=== PATIENT | male | born 1975 | race Caucasian/White ===

== ENCOUNTER 2019-08-27 10:14 | Emergency (ER) | payer OTHER, SELFPAY ==
[2019-08-27 10:15] VITALS: BP 152/87; PULSE 59; RESP 18; TEMP 36.3; O2SAT 98; BMI 22.1
[2019-08-27 10:33] VITALS: BP 116/77; PULSE 58; RESP 13; O2SAT 98
--- NOTE | 2019-08-27 10:39 | XRR_ITS ---
PROCEDURE INFORMATION: Exam: XR Chest, 1 View Exam date and time: 08/27/2019 10:42 AM Age: 44 years old Clinical indication: Other: Weakness and numbness TECHNIQUE: Imaging protocol: XR of the chest Views: 1 view. COMPARISON: No relevant prior studies available. FINDINGS: Lungs: Moderately hyperaerated lungs consistent with deep inspiratory effort vs significant reactive airway disease vs moderate COPD . Pleural space: Unremarkable. No pleural effusion. No pneumothorax. Heart/Mediastinum: Unremarkable. No cardiomegaly. Bones/joints: Mild levoscoliosis. Mild thoracic spondylosis. XR/XR chest 1V portable [id number] IMPRESSION: Moderately hyperaerated lungs consistent with deep inspiratory effort vs significant reactive airway disease vs moderate COPD .
--- NOTE | 2019-08-27 10:39 | CTR_ITS ---
PROCEDURE INFORMATION: Exam: CT Angiography Head With Contrast Exam date and time: 08/27/2019 10:49 AM Age: 44 years old Clinical indication: Numbness; Additional info: Dizziness / numbness / tingling TECHNIQUE: Imaging protocol: Computed tomography angiography of the head with intravenous contrast. 3D rendering: MIP and/or 3D reconstructed images were created by the technologist. Radiation optimization: All CT scans at this facility use at least one of these dose optimization techniques: automated exposure control; mA and/or kV adjustment per patient size (includes targeted exams where dose is matched to clinical indication); or iterative reconstruction. Contrast material: OMNI 350; Contrast volume: 95 ml; Contrast route: INTRAVENOUS (IV); COMPARISON: CT head wo con* [id number] 08/27/2019 10:57 AM RADIATION DOSE METRICS: Total DLP (mGy-cm): 2369.65 FINDINGS: Anterior cerebral arteries: No occlusion or significant stenosis. No aneurysm. Right internal carotid artery: Intracranial segment is patent with no significant stenosis or occlusion. No aneurysm. Right middle cerebral artery: No occlusion or significant stenosis. No aneurysm. Right posterior cerebral artery: No occlusion or significant stenosis. No aneurysm. Right vertebral artery: No occlusion or significant stenosis. No aneurysm. Left internal carotid artery: Calcified plaque in the left cavernous ICA without significant stenosis. Left middle cerebral artery: No occlusion or significant stenosis. No aneurysm. Left posterior cerebral artery: Possible small left posterior communicating artery. Left vertebral artery: No occlusion or significant stenosis. No aneurysm. Basilar artery: No occlusion or significant stenosis. No aneurysm. Other vasculature: Patent anterior communicating artery. IMPRESSION: No large vessel occlusion. PROCEDURE INFORMATION: Exam: CT Angiography Neck With Contrast Exam date and time: 08/27/2019 10:49 AM Age: 44 years old Clinical indication: Numbness; Additional info: Dizziness / numbness / tingling TECHNIQUE: Imaging protocol: Computed tomography angiography of the neck with intravenous contrast. 3D rendering: MIP and/or 3D reconstructed images were created by the technologist. Radiation optimization: All CT scans at this facility use at least one of these dose optimization techniques: automated exposure control; mA and/or kV adjustment per patient size (includes targeted exams where dose is matched to clinical indication); or iterative reconstruction. Contrast material: OMNI 350; Contrast volume: 95 ml; Contrast route: INTRAVENOUS (IV); COMPARISON: CT head wo con* [id number] 08/27/2019 10:57 AM RADIATION DOSE METRICS: Total DLP (mGy-cm): 2369.65 FINDINGS: Right common carotid artery: No stenosis. No dissection or occlusion. Right internal carotid artery: No ICA stenosis by NASCET/SRU criteria. Right external carotid artery: No occlusion or stenosis of the origin. Right vertebral artery: Codominant vertebral arteries. Left common carotid artery: No stenosis. No dissection or occlusion. Left internal carotid artery: No stenosis of the extracranial segment. No dissection or occlusion. Left external carotid artery: No occlusion or stenosis of the origin. Left vertebral artery: No stenosis. No dissection or occlusion. Other vasculature: Developmental defect in the posterior arch of C1 which is a normal variant. Dental: Examination is limited secondary to metallic artifact from dental fillings and/or dental hardware. Bones/joints: No acute fracture. Soft tissues: Normal. No significant soft tissue swelling. CT/CT angio headneck* [id number] IMPRESSION: 1. Codominant vertebral arteries. 2. No ICA stenosis by NASCET/SRU criteria. REFERENCES: NASCET CRITERIA. The degree of internal carotid artery stenosis is based on NASCET criteria. Normal is no stenosis. Mild is less than 50% stenosis. Moderate is 50-69% stenosis. Severe is 70% to 99% stenosis. Total occlusion is no detectable patent lumen. Radiation Dose CTDIVOL = (mGy): DLP = 2369.65~2369.65 (mGy-cm)
--- NOTE | 2019-08-27 10:39 | CTR_ITS ---
PROCEDURE INFORMATION: Exam: CT Head Without Contrast Exam date and time: 08/27/2019 10:49 AM Age: 44 years old Clinical indication: Dizziness TECHNIQUE: Imaging protocol: Computed tomography of the head without contrast. Radiation optimization: All CT scans at this facility use at least one of these dose optimization techniques: automated exposure control; mA and/or kV adjustment per patient size (includes targeted exams where dose is matched to clinical indication); or iterative reconstruction. COMPARISON: No relevant prior studies available. RADIATION DOSE METRICS: Total DLP (mGy-cm): 855.25 FINDINGS: Brain: Normal. No hemorrhage. Unremarkable white matter. No mass effect. Ventricles: Normal. No ventriculomegaly. Bones/joints: Unremarkable. No acute fracture. Sinuses: Visualized sinuses are unremarkable. No fluid levels. Mastoid air cells: Visualized mastoid air cells are well aerated. Vasculature: Mild calcified intracranial atherosclerotic vessel disease. Soft tissues: Unremarkable. CT/CT head wo con* [id number] IMPRESSION: No acute intracranial findings. Radiation Dose CTDIVOL = (mGy): DLP = 855.25 (mGy-cm)
--- NOTE | 2019-08-27 10:41 | ECG_ITS ---
[facility] Test Date: 2019-08-27 Pat Name: Aryan Diaz Department: Room: Gender: Male Field Crew Chief: : 1975 Requested By: Joss Garland Order Number: [id number] Lynn MD: Vincent Reyes M.D. Measurements Intervals [place] Rate: 50 P: 32 KS: 183 QRS: 68 QRSD: 101 T: 50 QT: 399 QTc: 365 Interpretive Statements SINUS BRADYCARDIA Compared to ECG 05/12/2018 11:50:10 No significant changes Electronically Signed On 08-27-2019 15:13:03 CDT by Vincent Reyes M.D. [id number]
--- NOTE | 2019-08-27 10:42 | ED_ITS ---
HPI - Weakness General: Chief complaint: Weakness Stated complaint: DIZZY/NUMB HANDS Time Seen by Provider: 08/27/19 10:29 History of Present Illness: HPI Narrative: Patient states that he spent most of the day yesterday out working in his garden. Patient was hydrating during that time however. Patient states he had sudden onset of a vertiginous feeling along with weakness. Symptoms were severe enough that patient went into his house to rest. The dizziness did not resolve and the patient also felt some nausea. Patient states that after he went to bed he had to get up several times during the night to go to the bathroom and early this morning stumbled and fell. There were no injuries. MD Complaint: generalized weakness, numbness, tingling, lack of energy and difficulty walking Onset (ago): hour(s) Duration: constant and progressively worsening Location: generalized Migration: none Severity: severe Quality: tingling and numbness Relieving factors: none Exacerbating factors: movement Associated symptoms: Reports nausea Review of Systems General: Reports: 10 or more systems reviewed and unremarkable except in HPI and below GI: Reports: nausea Neuro: Reports: sensory changes, difficulty walking, dizziness and vertigo PFS ED PFSH: Social History Smoking and tobacco status: never smoked Physical Exam Const: COMMON NORMALS: no acute distress, average body habitus, alert and well nourished HENMT: COMMON NORMALS: normocephalic, atraumatic, hearing grossly normal bilaterally, external ears normal, EAC's normal, TM's normal bilaterally, Normal external nose present, Normal nasal mucous membranes and turbinates present, moist oral mucous membranes, oropharynx normal, dentition normal and gingiva normal HEAD & SCALP: normocephalic and atraumatic NOSE: Normal external nose present and Normal nasal mucous membranes and turbinates present EXTERNAL EAR: Yes external ears normal EXTERNAL AUDITORY CANAL: EAC's normal TYMPANIC MEMBRANE: TM's normal bilaterally Eye: COMMON NORMALS: Equal, round and reactive pupils present, EOMs intact bilaterally, conjunctivae normal, no scleral icterus, no papilledema, normal visual augustine by confrontation and fundi normal bilaterally CONJUNCTIVA: Yes conjunctivae normal PUPIL: Yes Equal, round and reactive pupils present DIRECT OPHTHALMOSCOPY: Yes no papilledema and Yes fundi normal bilaterally Neck/C-Spine: COMMON NORMALS: full ROM, no lymphadenopathy, supple, no meningeal signs, no JVD, Thyroid normal and No carotid bruits THYROID: Thyroid normal Chest: COMMONS NORMALS: normal inspection of the chest and normal palpation of entire chest wall Resp: COMMON NORMALS: normal respiratory effort, No retractions, No use of accessory muscles, clear to auscultation bilaterally and percussion normal AUSCULTATION: clear to auscultation bilaterally PERCUSSION: percussion normal Cardio: COMMON NORMALS: no JVD, regular rate, regular rhythm, S1 normal heart sound present, S2 normal heart sound present, No gallops present (Cardio), No clicks present (Cardio), No murmurs present (Cardio), No rub (Cardio) and Peripheral pulses 2+ throughout RATE: regular rate RHYTHM: regular rhythm HEART SOUNDS: S1 normal heart sound present and S2 normal heart sound present PERIPHERAL PULSES: Peripheral pulses 2+ throughout GI: COMMON NORMALS: Normal to inspection, nondistended, normoactive bowel sounds present, Soft to palpation, non-tender, No hepatosplenomegaly present, no masses and no bruits PALPATION: Yes Soft to palpation and Yes No hepatosplenomegaly present Back/Pelvis: COMMON NORMALS: thoracic and lumbar spine normal to inspection, no thoracic nor lumbar tenderness, thoraco-lumbar ROM normal and straight leg raise negative bilaterally Extremity: COMMON NORMALS: normal to inspection, full ROM, capillary refill normal, no joint enlargement, no clubbing, cyanosis or edema, no calf tenderness and no pedal edema Neuro: SENSORIUM/ORIENTATION: Yes alert and Yes somnolent MENINGEAL SIGNS: Yes no meningeal signs Skin: COMMON NORMALS: no rashes or lesions noted, no wounds, no jaundice and no mottling GENERAL SKIN EXAM: no rashes or lesions noted Course Vital Signs: Vital signs: Vital Signs Temperature 97.4 F L 08/27/19 10:15 Pulse Rate 62 08/27/19 11:33 Respiratory Rate 18 08/27/19 12:00 Blood Pressure 129/89 08/27/19 11:33 Pulse Oximetry 97 08/27/19 11:33 MDM - Weakness Lab Data: Labs: Lab Results 08/27/19 08/27/19 08/27/19 Range/Units 10:50 10:50 10:50 WBC 8.8 (4.0-10.0) 10^3/ uL RBC 5.18 (4.1-5.3) 10^6/u L Hgb 14.2 (11.7-16.6) g/dL Hct 43.3 (42.0-52.0) % MCV 83.6 (80-94) fL MCH 27.4 L (28.0-34.0) pg MCHC 32.8 (30.0-36.0) g/dL RDW 14.5 (12.1-15.1) % Plt Count 464 H (130-400) 10^3/c mm MPV 9.1 (7.4-10.4) fL Neut % (Auto) 54.8 % Lymph % (Auto) 34.6 % [facility] % (Auto) 7.6 % Eos % (Auto) 1.9 % Baso % (Auto) 0.9 % Neut # (Auto) 4.8 (1.8-7.7) 10^3/u L Lymph # (Auto) 3.0 (0.8-4.8) 10^3/u L [facility] # (Auto) 0.7 (0.2-0.9) 10^3/u L Eos # (Auto) 0.2 (0.0-0.8) 10^3/u L Baso # (Auto) 0.1 (0.0-0.1) 10^3/u L Nucleated RBC % (a uto) 0 % Nucleated RBCs # 0.0 /100WBC Sodium 137 (136-145) mmol/L Potassium 3.7 (3.5-5.1) mmol/L Chloride 101 (98-107) mmol/L Carbon Dioxide 23 (22-29) mmol/L Anion Gap 16.7 (5-19) BUN 17 (6-20) mg/dL Creatinine 0.5 L (0.7-1.2) mg/dL GFR Calculation 179.8 H (90-130) mL/min Glucose 98 (65-115) mg/dL Calculated Osmolal ity 280 L (285-295) mOsm/k g Lactate 0.8 (0.5-2.2) mmol/L Calcium 10.1 (8.5-10.5) mg/dL Phosphorus 1.9 L (2.5-4.5) mg/dL Magnesium 1.9 (1.7-2.3) mg/dL Total Bilirubin 0.9 (0.15-1.2) mg/dL AST 19 (0-40) U/L ALT 14 (0-41) U/L Alkaline Phosphata se 76 (40-130) IU/L Creatine Kinase 91 (39-308) U/L Troponin T Baselin e (0-15) ng/L Troponin T 120 Min vikram (0-15) ng/L Delta Troponin T (0-10) ABS# Total Protein 7.4 (6.6-8.7) g/dL Albumin 4.8 (3.5-5.2) g/dL Globulin 2.6 (1.3-4.6) g/dL Lipase 30 (13-60) U/L TSH 2.74 (0.27-4.20) uIU/ mL Urine Color (Yellow) Urine Appearance (CLEAR) Urine pH (5-7) Ur Specific Gravit y (1.005-1.030) Urine Protein (Negative) Urine Glucose (UA) (Normal) Urine Ketones (Negative) Urine Blood (Negative) Urine Nitrate (Negative) Urine Bilirubin (NEGATIVE) Prot Sulfosalicyli c Acd (Negative) Urine Urobilinogen (Negative) mg/dL Ur Leukocyte Maritza ase (Negative) 08/27/19 08/27/19 08/27/19 Range/Units 10:50 11:04 12:47 WBC (4.0-10.0) 10^3/ uL RBC (4.1-5.3) 10^6/u L Hgb (11.7-16.6) g/dL Hct (42.0-52.0) % MCV (80-94) fL MCH (28.0-34.0) pg MCHC (30.0-36.0) g/dL RDW (12.1-15.1) % Plt Count (130-400) 10^3/c mm MPV (7.4-10.4) fL Neut % (Auto) % Lymph % (Auto) % [facility] % (Auto) % Eos % (Auto) % Baso % (Auto) % Neut # (Auto) (1.8-7.7) 10^3/u L Lymph # (Auto) (0.8-4.8) 10^3/u L [facility] # (Auto) (0.2-0.9) 10^3/u L Eos # (Auto) (0.0-0.8) 10^3/u L Baso # (Auto) (0.0-0.1) 10^3/u L Nucleated RBC % (a uto) % Nucleated RBCs # /100WBC Sodium (136-145) mmol/L Potassium (3.5-5.1) mmol/L Chloride (98-107) mmol/L Carbon Dioxide (22-29) mmol/L Anion Gap (5-19) BUN (6-20) mg/dL Creatinine (0.7-1.2) mg/dL GFR Calculation (90-130) mL/min Glucose (65-115) mg/dL Calculated Osmolal ity (285-295) mOsm/k g Lactate (0.5-2.2) mmol/L Calcium (8.5-10.5) mg/dL Phosphorus (2.5-4.5) mg/dL Magnesium (1.7-2.3) mg/dL Total Bilirubin (0.15-1.2) mg/dL AST (0-40) U/L ALT (0-41) U/L Alkaline Phosphata se (40-130) IU/L Creatine Kinase (39-308) U/L Troponin T Baselin e 6 (0-15) ng/L Troponin T 120 Min vikram 6.00 (0-15) ng/L Delta Troponin T 0 (0-10) ABS# Total Protein (6.6-8.7) g/dL Albumin (3.5-5.2) g/dL Globulin (1.3-4.6) g/dL Lipase (13-60) U/L TSH (0.27-4.20) uIU/ mL Urine Color Straw (Yellow) Urine Appearance Clear (CLEAR) Urine pH 9 H (5-7) Ur Specific Gravit y 1.010 (1.005-1.030) Urine Protein Neg (Negative) Urine Glucose (UA) Norm (Normal) Urine Ketones Negative (Negative) Urine Blood Neg (Negative) Urine Nitrate Negative (Negative) Urine Bilirubin Neg (NEGATIVE) Prot Sulfosalicyli c Acd Negative (Negative) Urine Urobilinogen Norm (Negative) mg/dL Ur Leukocyte Maritza ase Negative (Negative) Discharge Plan Discharge Patient Disposition: Home, Self-Care Clinical Impression: Generalized weakness, Vertigo Condition: Stable Prescriptions: New meclizine 25 mg tablet 25 mg PO QID PRN (Reason: dizziness) Qty: 20 RF: 0 No Action gabapentin 400 mg Capsule 800 mg PO BID RF: 0 baclofen 10 mg Tablet 10 mg PO TID PRN (Reason: Muscle Spasm) RF: 0 omeprazole 40 mg PO DAILY RF: 0 sildenafil 100 mg Tablet See Rx Instructions .ROUTE .COMPLEX RF: 0 Ventolin HFA 90 mcg/actuation Hfa Aerosol Inhaler 2 puff INHALATION QID PRN (Reason: Shortness Of Breath) RF: 0 Augmentin 875-125 mg Tablet 1 tab PO BID RF: 0 capsaicin 0.1 % Cream 1 applic TOPICAL TID RF: 0 budesonide-formoterol 80-4.5 mcg/actuation Hfa Aerosol Inhaler 2 puff INHALATION BID RF: 0 Vitamin D3 50 mcg (2,000 unit) Tablet 50 mcg PO DAILY RF: 0 Discharge Orders: Discharge Order (Routine); Ordered 08/27/19 Ordered By: Joss Kendrick Referrals: Jai Daugherty [Primary Care Provider] - Coding Level of Care Code ED Engine Repair Supervisor for Chg Fwd Exam Comprehensive
[2019-08-27] MEDS: sodium chloride 0.9% 1,000 ML 999 ML IV ×2 (10:58→12:29)
[2019-08-27 10:59] LABS: Basophils # 0.1 10^3/uL (0.0-0.1); Basophils % 0.9 %; Eosinophils # 0.2 10^3/uL (0.0-0.8); Eosinophils % 1.9 %; Hematocrit 43.3 % (42.0-52.0); Hemoglobin 14.2 g/dL (11.7-16.6); Lymphocytes % 34.6 %; Mean Corpuscular HGB Conc 32.8 g/dL (30.0-36.0); Mean Corpuscular Hemoglobin 27.4 pg (28.0-34.0); Mean Corpuscular Volume 83.6 fL (80-94); Mean Platelet Volume 9.1 fL (7.4-10.4); Monocytes # 0.7 10^3/uL (0.2-0.9); Monocytes % 7.6 %; Neutrophils # 4.8 10^3/uL (1.8-7.7); Neutrophils % 54.8 %; Nucleated Red Blood Cells % 0 %; Platelet Count 464 10^3/cmm (130-400); Red Blood Count 5.18 10^6/uL (4.1-5.3); Red Cell Distribution Width 14.5 % (12.1-15.1); White Blood Count 8.8 10^3/uL (4.0-10.0)
[2019-08-27] MEDS: iohexol 350 mg/mL 100 mL Btl 95 ML IV (11:12)
[2019-08-27 11:18] LABS: Lactate (Lactic Acid level) 0.8 mmol/L (0.5-2.2)
[2019-08-27 11:19] LABS: Troponin(5th) Baseline 6 ng/L (0-15)
[2019-08-27 11:27] LABS: Alanine Aminotransferase 14 U/L (0-41); Albumin Level 4.8 g/dL (3.5-5.2); Alkaline Phosphatase 76 IU/L (40-130); Anion Gap 16.7 (5-19); Aspartate Amino Transferase 19 U/L (0-40); Blood Urea Nitrogen 17 mg/dL (6-20); Calcium 10.1 mg/dL (8.5-10.5); Carbon Dioxide 23 mmol/L (22-29); Chloride 101 mmol/L (98-107); Creatine Phosphokinase 91 U/L (39-308); Globulin 2.6 g/dL (1.3-4.6); Glomerular Filtration Rate 179.8 mL/min (90-130); Glucose 98 mg/dL (65-115); Lipase 30 U/L (13-60); Magnesium 1.9 mg/dL (1.7-2.3); Osmolality Calculated 280 mOsm/kg (285-295); Phosphorus 1.9 mg/dL (2.5-4.5); Potassium 3.7 mmol/L (3.5-5.1); Sodium 137 mmol/L (136-145); Thyroid Stimulating Hormone 2.74 uIU/mL (0.27-4.20); Total Bilirubin 0.9 mg/dL (0.15-1.2); Total Protein 7.4 g/dL (6.6-8.7)
[2019-08-27 11:33] VITALS: BP 129/89; PULSE 62; RESP 18; O2SAT 97
[2019-08-27 11:57] LABS: Add Urine Microscopic? NO
[2019-08-27 12:00] VITALS: RESP 18
[2019-08-27 12:07] LABS: Bilirubin Urine Neg (NEGATIVE); Blood Urine Neg (Negative); Glucose Urine UA Norm (Normal); Ketones Urine Negative (Negative); Leukocyte Esterase Urine Negative (Negative); Nitrate Urine Negative (Negative); Protein Urine Neg (Negative); Sulfosalicylic Acid Urine Negative (Negative); Urine Appearance Clear (CLEAR); Urine Color Straw (Yellow); Urobilinogen Urine Norm (Negative); pH Urine 9 (5-7)
--- NOTE | 2019-08-27 12:41 | ECG_ITS ---
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 Measurements Intervals [place] Rate: 59 P: 44 PA: 182 QRS: 66 QRSD: 102 T: 50 QT: 379 QTc: 376 Interpretive Statements SINUS BRADYCARDIA Compared to ECG 08/27/2019 11:04:00 No significant changes Electronically Signed On 08-27-2019 15:16:18 CDT by Vincent Reyes M.D. [id number]
[2019-08-27 13:00] VITALS: BP 145/88; PULSE 72; RESP 18; O2SAT 100
[2019-08-27 13:14] LABS: Troponin 5 2HR Delta 0 ABS# (0-10)
[2019-08-27 13:49] VITALS: BP 145/88; PULSE 72; RESP 18; TEMP 36.3; O2SAT 100
[2019-08-29 12:25] LABS: Lyme AB Screen <0.90 index
[2019-08-31 16:56] LABS: E. Chaffeensis AB IGG <1:64; E. Chaffeensis AB IGM <1:20; RMSF IGG NOT DETECTED; RMSF IGM NOT DETECTED
== END 2019-08-27 13:50 | disposition home or self-care (01) ==
PROVIDERS: Emergency Provider Family Medicine; Family Provider Internal Medicine; PCP Internal Medicine
DX: R53.1 Weakness (principal); R42 Dizziness and giddiness
CPT/HCPCS: 12345; 36415; 70450; 70496; 70498; 71045; 80053; 81003; 82550; 83605; 83690; 83735; 84100; 84443; 84484; 85025; 86618; 86666; 86757; 93005; 96360; 96361; 99283; 99284; J7030; Q9967

== ENCOUNTER 2020-02-23 13:13 | Emergency (ER) | payer OTHER, SELFPAY ==
[2020-02-23 13:43] VITALS: BP 148/89; PULSE 71; RESP 18; TEMP 36.3; O2SAT 98; BMI 25.1
[2020-02-23] MEDS: lidocaine 1% INJ 20 mL SUBCUT (14:27)
--- NOTE | 2020-02-23 14:28 | ED_ITS ---
HPI - Wound/Laceration General: Chief Complaint: Wound/Laceration Stated Complaint: injury left index finger Time Seen by Provider: 02/23/20 13:50 History of Present Illness: HPI narrative: Patient was opening a [place] present and sustained a laceration to left second digit 3 cm long. Neurovascularly intact distal to injury. Ligaments intact. Capillary refill good. He cut it on the hard plastic wrapping. Last tetanus [address]: home Patient tetanus UTD: Yes Context: accidental Associated symptoms: Reports no associated symptoms and pain; Denies numbness Treatments prior to arrival: bandage Review of Systems General: Reports: 10 or more systems reviewed and unremarkable except in HPI and below Const: Denies: fatigue Eyes: Denies: change in vision, blurry vision or eye redness ENMT: Denies: throat pain, swelling of lips/tongue, ear or mastoid pain or nasal congestion Card: Denies: chest pain, palpitations, irregular heart rhythm, edema, dyspnea on exertion or orthopnea Resp: Denies: dyspnea, productive cough or non-productive cough GI: Denies: abdominal pain, diarrhea or GI cramping : Denies: flank pain, urinary frequency or urinary urgency Musc: Denies: neck pain, back pain, extremity pain, joint pain, joint redness, limited range of motion or muscle weakness Skin/Breast: Reports: other (laceration); Denies: rash, pruritus, erythema, skin pain or skin tenderness Neuro: Denies: headache(s), numbness in extremities, weakness in extremities, sensory changes, difficulty walking, dizziness, confusion or Slurred speech present Psych: Denies: anxiety or depression Endo: Denies: polyuria All/Imm: Denies: urticaria, throat swelling or tongue swelling PFSH ED PFSH: Social History Smoking and tobacco status: never smoked Physical Exam Const: COMMON NORMALS: no acute distress, average body habitus, patient oriented x3, no limitations, healthy appearing, alert and well nourished GENERAL APPEARANCE: cooperative, comfortable, well kempt and well developed ORIENTATION/CONSCIOUSNESS: Yes awake, Yes oriented to person, Yes oriented to place and Yes oriented to time HENMT: COMMON NORMALS: normocephalic, external ears normal and Normal external nose present HEAD & SCALP: normal to inspection and normocephalic NOSE: Normal external nose present EXTERNAL EAR: Yes external ears normal MOUTH: Normal oral and palatal mucosa present THROAT: posterior oropharynx normal Eye: COMMON NORMALS: Equal, round and reactive pupils present and EOMs intact bilaterally GENERAL EYE: appearance normal, both eyes and all related structures PUPIL: Yes Equal, round and reactive pupils present Neck/C-Spine: COMMON NORMALS: full ROM, no lymphadenopathy, no meningeal signs and no JVD GENERAL: Yes normal visual inspection Lymph: LYMPHATIC: no lymphadenopathy noted Chest: COMMONS NORMALS: normal inspection of the chest and normal palpation of entire chest wall Resp: COMMON NORMALS: normal respiratory effort, No retractions, No use of accessory muscles, clear to auscultation bilaterally and percussion normal EFFORT & INSPECTION: Yes able to speak in complete sentences AUSCULTATION: clear to auscultation bilaterally PERCUSSION: percussion normal Cardio: COMMON NORMALS: no JVD, regular rate, regular rhythm, S1 normal heart sound present, S2 normal heart sound present and Peripheral pulses 2+ throughout RATE: regular rate RHYTHM: regular rhythm HEART SOUNDS: S1 normal heart sound present and S2 normal heart sound present PERIPHERAL PULSES: Peripheral pulses 2+ throughout GI: COMMON NORMALS: Normal to inspection, nondistended, normoactive bowel sounds present, Soft to palpation, non-tender and no masses INSPECTION: Yes normal to inspection PALPATION: Yes Soft to palpation : COMMON NORMALS: Yes no CVA tenderness BLADDER/KIDNEY EXAM: Yes no CVA tenderness Back/Pelvis: COMMON NORMALS: no CVA tenderness, thoracic and lumbar spine normal to inspection, no thoracic nor lumbar tenderness and thoraco-lumbar ROM normal Extremity: COMMON NORMALS: normal to inspection, full ROM, capillary refill normal, no joint enlargement and no pedal edema GENERAL: Yes normal exam except as noted Neuro: COMMON NORMALS: patient oriented x3, CN's II-XII intact bilaterally, moves all extremities, no focal motor deficits, no sensory deficits noted and gait normal SENSORIUM/ORIENTATION: Yes alert, Yes oriented to person, Yes oriented to place and Yes oriented to time MENINGEAL SIGNS: Yes no meningeal signs Psych: COMMON NORMALS: mental status grossly normal, Normal thought process present, cooperative, normal affect and speech normal APPEARANCE: Yes well kempt ATTITUDE: Yes calm SPEECH: Yes normal speech THOUGHT PROCESS: Normal thought process present Skin: NARRATIVE SKIN EXAM: Laceration to left second digit on the dorsal aspect it starts just distal to the metacarpophalangeal joint and traverses 3 cm in an irregular manner to the middle phalanx. Neurovascularly intact distal to injury. Capillary refill good, ligaments intact. Procedures Laceration Laceration 1: Site: upper extremity (left 2nd digit) Side (If applicable): left Size (cm): 2.5 Description: irregular Depth: simple, single layer Local Anesthetic: lidocaine 1% Amount of anesthesia used (mL): 3 Pre-repair: wound explored and irrigated extensively Skin layer closed with: other (4-0 ethilon) Size (cm): 4-0 Number of sutures: 6 Technique: simple, interrupted Course Vital Signs: Vital signs: Vital Signs Temperature 97.3 F L 02/23/20 13:43 Pulse Rate 71 02/23/20 13:43 Respiratory Rate 18 02/23/20 13:43 Blood Pressure 148/89 02/23/20 13:43 Pulse Oximetry 98 02/23/20 13:43 MDM - Wound/Laceration MDM Narrative: Medical decision making narrative: Cleaned and repaired left second digit laceration with 6 Ethilon sutures. Remove in a week. Will discharge with Keflex for prevention of infection. Patient tolerated procedure well Discharge Plan Discharge Patient Disposition: Home Clinical Impression: Laceration Condition: Stable Prescriptions: New Keflex 500 mg capsule 500 mg PO BID 7 Days Qty: 14 RF: 0 No Action gabapentin 400 mg Capsule 800 mg PO BID@2300 RF: 0 baclofen 10 mg Tablet 10 mg PO TID PRN (Reason: Muscle Spasm) RF: 0 omeprazole 40 mg PO DAILY@2300 RF: 0 sildenafil 100 mg Tablet See Rx Instructions .ROUTE .COMPLEX RF: 0 albuterol sulfate [Ventolin HFA] 90 mcg/actuation Hfa Aerosol Inhaler 2 puff INHALATION QID PRN (Reason: Shortness Of Breath) RF: 0 capsaicin 0.1 % Cream 1 applic TOPICAL TID RF: 0 budesonide-formoterol 80-4.5 mcg/actuation Hfa Aerosol Inhaler 2 puff INHALATION BID RF: 0 cholecalciferol (vitamin D3) [Vitamin D3] 50 mcg (2,000 unit) Tablet 50 mcg PO DAILY@2300 RF: 0 meclizine 25 mg tablet 25 mg PO QID PRN (Reason: dizziness) Qty: 20 RF: 0 Discharge Orders: Discharge ED (Routine); Ordered 02/23/20 Ordered By: Johny Nixon Referrals: Jai Daugherty [Primary Care Provider] - Discharge Diet: Usual diet Discharge Activity: Limit activity as instructed Patient Instructions: Finger Laceration (ED) Activity Restrictions/Additional Instructions: Please have sutures removed in 7 to 10 days. Be careful not to bend finger her sutures will pop open. If there is bleeding please apply pressure for 30 minutes to an hour and it should slow or stop. If it does not, return to the ER. Please take antibiotics to prevent infection and return to the ER with worsening symptoms. Coding Level of Care Code ED Repair Armature Winder Helper for Alex Fwvalorie Exam Comprehensive
[2020-02-23 15:29] VITALS: BP 140/90; PULSE 64; RESP 18; O2SAT 64
== END 2020-02-23 15:33 | disposition home or self-care (01) ==
PROVIDERS: Emergency Provider Family Medicine; PCP Internal Medicine
DX: S61.211A Laceration without foreign body of left index finger without damage to nail, initial encounter (principal); W26.8XXA Contact with other sharp object(s), not elsewhere classified, initial encounter
CPT/HCPCS: 12001; 12345; 99281; 99282

== ENCOUNTER → 2021-05-22 10:48 | Outpatient (BNVA) | payer OTHER, SELFPAY | PROVIDERS: PCP Internal Medicine; Referring Provider Family Medicine; Visit Provider Orthopaedic Surgery | DX: M54.50 Low back pain, unspecified (principal); M41.86 Other forms of scoliosis, lumbar region; M25.78 Osteophyte, vertebrae; M48.062 Spinal stenosis, lumbar region with neurogenic claudication | CPT/HCPCS: 72110 ==

== ENCOUNTER 2021-06-16 06:00 | Outpatient (RCR) | payer OTHER, SELFPAY | END 2021-06-28 23:59 | disposition home or self-care (01) | LOC: SPT 06:00 | PROVIDERS: PCP Internal Medicine; Referring Provider Orthopaedic Surgery; Visit Provider Orthopaedic Surgery | DX: M54.50 Low back pain, unspecified (principal) | CPT/HCPCS: 97161 ==

== ENCOUNTER 2022-03-17 11:51 | Emergency (ER) | payer OTHER, SELFPAY ==
[2022-03-17 11:54] VITALS: BP 134/89; PULSE 81; RESP 16; TEMP 36.6; O2SAT 96; BMI 25.1
--- NOTE | 2022-03-17 12:48 | ED_ITS ---
HPI - Neck Pain/Injury General: Chief Complaint: Neck Pain/Injury Stated Complaint: not on left side of back, in pain Time Seen by Provider: 03/17/22 12:28 Source: patient Mode of arrival: ambulatory Limitations: no limitations History of Present Illness: Patient is a nice 47-year-old male who presents to ED today with a complaint of neck pain. Patient has what he feels to be a knot near his left occiput that he has noticed over the past 4 months or so. Patient did discuss [facility] who did not feel like imaging was necessary. He states the discomfort to the area will sometimes radiate up onto the left side of his scalp. Patient denies any severe headache. No neurologic deficits or symptoms. He states 2 days ago he began noticing some left lateral neck pain that is worse with movement and thus prompted his ED visit. MD complaint: neck pain Onset (ago): month(s) Radiation: left lateral and occiput Severity: mild Relieving factors: none Exacerbating factors: movement of neck Associated symptoms: Reports no associated symptoms; Denies difficulty walking, dizziness, headache(s) or nausea Treatments prior to arrival: none Review of Systems Const: Denies: fever(s), chills, body aches, fatigue or malaise Eyes: Denies: change in vision, blurry vision, floaters or seeing flashes ENMT: Denies: throat pain, enlarged tonsils or odynophagia GI: Denies: nausea or vomiting Musc: Reports: neck pain Neuro: Denies: headache(s), numbness in extremities, weakness in extremities, sensory changes, lack of coordination, difficulty walking, frequent falls, dizziness, vertigo, confusion, behavioral changes, Slurred speech present, difficulty communicating thoughts, seizure-like activity or involuntary movements [facility] ED PFSH: Social History Smoking and tobacco status: never smoked Physical Exam Const: COMMON NORMALS: no acute distress, average body habitus, patient oriented x3, healthy appearing, alert and well nourished; limitations GENERAL APPEARANCE: cooperative ORIENTATION/CONSCIOUSNESS: Yes awake, Yes oriented to person, Yes oriented to place and Yes oriented to time HENMT: COMMON NORMALS: normocephalic, atraumatic and TM's normal bilaterally HEAD & SCALP: normal to inspection, normocephalic and atraumatic FACE & SINUS: normal facial exam and face symmetric TYMPANIC MEMBRANE: TM's normal bilaterally Eye: GENERAL EYE: appearance normal, both eyes and all related structures and normal light reflex DIRECT OPHTHALMOSCOPY: Yes normal light reflex Neck/C-Spine: COMMON NORMALS: full ROM GENERAL: Yes normal visual inspection, No anterior neck swelling, No lymphadenopathy and No submandibular swelling CERVICAL SPINE: Yes cervical ROM normal, No Cervical spine tenderness, No step off deformity, No Paracervical muscle tenderness, No Trapez ius muscle tenderness and No Lhermitte's sign positive NECK IMAGES: 1. TTP left occiput-I do not appreciate any swelling or nodules 2. TTP along left sternocleidomastoid-pain reproducible with palpation and neck rotation to the right; no swelling noted Resp: COMMON NORMALS: normal respiratory effort Extremity: COMMON NORMALS: full ROM GENERAL: Yes normal exam except as noted Neuro: BETSEY COMA SCALE: document GCS findings Betsey coma scale eye opening: Spontaneous [place] coma scale verbal response: Orientated [place] coma scale motor response: Obey commands [place] coma scale total score: 15 COMMON NORMALS: patient oriented x3, CN's II-XII intact bilaterally, moves all extremities, no focal motor deficits and no sensory deficits noted SENSORIUM/ORIENTATION: Yes alert, Yes oriented to person, Yes oriented to place and Yes oriented to time Skin: COMMON NORMALS: no rashes or lesions noted GENERAL SKIN EXAM: no rashes or lesions noted Course Vital Signs: Vital signs: Vital Signs Temperature 97.8 F 03/17/22 11:54 Pulse Rate 73 03/17/22 12:55 Respiratory Rate 19 H 03/17/22 12:55 Blood Pressure 134/89 03/17/22 11:54 Pulse Oximetry 95 03/17/22 12:55 Oxygen Delivery Me thod 03/17/22 11:54 MDM - Neck Pain/Injury Medical Decision Making Patient with pain to his left occiput over the past 4 months or so. He began having some pain to his left sternocleidomastoid musculature about 2 days ago thus prompting his ED visit. Based on patient's history and physical exam I do not have any concern for any type of vascular emergency. There is nothing to suggest infectious etiology. He has not had any injury or trauma. Discussed imaging however I do not feel patient's symptoms and presentation warrants emergent imaging and I think he is more than stable to follow-up with this [facility]. Signs and symptoms that should warrant a return to ED evaluation were discussed extensively with patient he verbalized understanding. Discharge Plan Discharge Patient Disposition: Home Clinical Impression: Neck discomfort Condition: Stable Prescriptions: No Action gabapentin 100 mg capsule 100 mg PO TID baclofen 10 mg Tablet 10 mg PO TID PRN (Reason: Muscle Spasm) omeprazole 40 mg PO DAILY@2300 sildenafil 100 mg Tablet See Rx Instructions .ROUTE .COMPLEX Rx Instructions: as directed albuterol sulfate [Ventolin HFA] 90 mcg/actuation Hfa Aerosol Inhaler 2 puff INHALATION QID PRN (Reason: Shortness Of Breath) capsaicin 0.1 % Cream 1 applic TOPICAL TID budesonide-formoterol 80-4.5 mcg/actuation Hfa Aerosol Inhaler 2 puff INHALATION BID cholecalciferol (vitamin D3) [Vitamin D3] 50 mcg (2,000 unit) Tablet 50 mcg PO DAILY@2300 meclizine 25 mg tablet 25 mg PO QID PRN (Reason: dizziness) Qty: 20 0RF Discharge Orders: Discharge ED (Routine); Ordered 03/17/22 Ordered By: Josselyn Reyes Referrals: Jai Daugherty [Primary Care Provider] - Activity Restrictions/Additional Instructions: As we discussed I would like [facility] for etiology of your neck pain. I do not see any indication for emergent/STAT imaging on today's visit. Coding Level of Care Code ED Maxillofacial Surgeon for Alex [facility]
[2022-03-17 12:55] VITALS: PULSE 73; RESP 19; O2SAT 95
== END 2022-03-17 12:56 | disposition home or self-care (01) ==
PROVIDERS: Emergency Provider Physician Assistant; PCP Internal Medicine
DX: M54.2 Cervicalgia (principal)
CPT/HCPCS: 99282